=== PATIENT | male | born 1940 | race Caucasian/White ===

== ENCOUNTER → 2016-12-29 | Outpatient (CLI) | payer OTHER | LOC: FIMAGING 15:50 | PROVIDERS: ATTEND Internal Medicine | DX: M48.07 Spinal stenosis, lumbosacral region (principal); M47.816 Spondylosis without myelopathy or radiculopathy, lumbar region; M48.062 Spinal stenosis, lumbar region with neurogenic claudication; M46.96 Unspecified inflammatory spondylopathy, lumbar region ==

== ENCOUNTER → 2017-02-18 | Outpatient (CLI) | payer OTHER | LOC: BMCIMAGING 15:10 | PROVIDERS: ATTEND Orthopaedic Surgery Hand Surgery | DX: M18.12 Unilateral primary osteoarthritis of first carpometacarpal joint, left hand (principal) ==

== ENCOUNTER 2017-03-26 19:31 | Emergency (ER) | payer OTHER ==
[2017-03-26 19:38] VITALS: BP 163/89; PULSE 71; RESP 20; TEMP 99; O2SAT 97
--- NOTE | 2017-03-26 19:45 | EDPHY ---
H & P Stated Complaint: Bowel obstruction, constipation HPI/ROS: CHIEF COMPLAINT: Bowel blockage HISTORY OF PRESENT ILLNESS: This patient is a 77 year old male who underwent lumbar surgery 03/23/17 who presents complaining of constipation. He had a cyst removal under general anesthesia to relieve nerve impingement with Dr. Dove, neurosurgeon. Since the procedure, he has been taking his maximum allowed dose of pain medication ( hydrocodone) as he feels pain is worse following surgery. He takes Hydrocodone 1 -2 every 4-6 hours as well as a muscle relaxant. He has not had a bowel movement since before his operation, but was able to remove a very small quantity of stool today with manual disimpaction. He has passed some gas. He has taken a stool softener, four x-lax pills, prune juice, and been drinking lots of water with no relief. He has lower abdominal discomfort due to gas and constipation. He denies any blood per rectum. He denies fever, vomiting, urinary complaints, or other associated symptoms. REVIEW OF SYSTEMS: A ten point review of systems was performed and is negative with the exception of the items mentioned in the HPI. Past medical history: 1. GERD 2. Hyperlipidemia Past surgical history: 1. Stent placements (formerly anticoagulated) 2. Lumbar surgery Family history: Noncontributory Social history: . at bedside. 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 General Appearance: Alert. Vital signs reviewed. BP 163/89. Eyes: Pupils equal and round, no conjunctival injection, no discharge. Anicteric. ENT, Mouth: Mucous membranes are moist, no oropharyngeal erythema or edema. Respiratory: Lungs are clear to auscultation; no wheezes, rales, or rhonchi. Cardiovascular: Regular rate and rhythm; no murmur, rub, or gallop. Gastrointestinal: Abdomen is soft and nontender, no masses or organomegaly, bowel sounds normal. Rectal: Firm stool high in rectal vault. Normal rectal tone and sensation. Skin: Warm and dry, no rashes on exposed skin, normal color. Back: Surgical dressing in place over lumbar spine. No erythema at edge of dressing. Nontender to palpation over the thoracolumbar spine. No CVAT. Extremities: No lower extremity edema, no calf tenderness or swelling. Neurological: Alert and oriented. Moving all four extremities easily and equally. Gait is mildly antalgic. Psychiatric: Normal affect. - Personal History Current Tetanus Diphtheria and Acellular Pertussis (TDAP): Unsure Tetanus Vaccine Date: Unsure - Medical/Surgical History Hx Asthma: No Hx Chronic Respiratory Disease: No Hx Diabetes: No Hx Cardiac Disease: Yes Hx Renal Disease: No Hx Cirrhosis: No Hx Alcoholism: No Hx HIV/AIDS: No Hx Splenectomy or Spleen Trauma: No - Social History Smoking Status: Never smoked Constitutional: Initial Vital Signs Temperature (C) 37.2 C 03/26/17 19:34 Heart Rate 71 03/26/17 19:34 Respiratory Rate 20 03/26/17 19:34 Blood Pressure 163/89 H 03/26/17 19:34 O2 Sat (%) 97 03/26/17 19:34 O2 Delivery Mode Room Air Allergies/Adverse Reactions: mussels Allergy (Verified 03/26/17 19:33) Home Medications: Medication Instructions Recorded Atorvastatin Calcium [Lipitor 40 40 mg PO DAILY 07/10/11 mg (RX)] Cetirizine [ZyRTEC] 10 mg PO DAILY PRN 07/10/11 Clopidogrel Bisulfate [Plavix (RX)] 75 mg PO DAILY 07/10/11 Omeprazole [Prilosec 20 mg] 20 mg PO DAILY 07/10/11 Zolpidem Tartrate [Ambien (RX)] 5 mg PO HSPRN PRN 07/10/11 Medical Decision Making ED Course/Re-evaluation: 77 year old male s/p spinal surgery 03/23/17 presents with four day history of constipation. Exam reveals firm stool in vault, normal tone. Plan for enema administration. If this is unsuccessful, plan to administer magnesium citrate. Patient felt the urge to move his bowels and was able to do so without any additional treatment. He had significant relief and felt well enough to return home. I recommend that he decrease his opiate use. He agrees to try tylenol only, with an occasional opiate if needed. The hydrocodone has not been providing pain relief, will try oxycodone (he was given Percocet, six dispensed) . He understands that he needs to monitor his overall tylenol ingestion. He will continue with a stool softener and will begin Miralax. He plans to contact Dr. Dove's office on Tuesday to discuss his pain level. He has no new weakness. I do not suspect a surgical complication, epidural abscess, infection. I think that his constipation is due to opiate use and relative inactivity. - Data Points Medications Given: Discontinued Medications Oxycodone/Acetaminophen (Percocet 5/325mg Prepack#4) 1 btl TAKEHOME EDNOW ONE Stop: 03/26/17 21:06 Last Admin: 03/26/17 21:24 Dose: 1 btl Departure - Departure Disposition: Home, Routine, Self-Care Clinical Impression: Constipation Qualifiers: Constipation type: drug induced constipation Qualified Code(s): K59.03 - Drug induced constipation Condition: Good Instructions: Constipation (ED) Additional Instructions: I recommend that you continue with the stool softener that you are taking. I also recommend MiraLax daily for the next few days. I do not think that you need to take magnesium citrate (the liquid that we discussed). Try the percocet for pain, if needed. As we discussed, the fewer narcotics you take the better off you will be in terms of constipation. The Percocet also contains Tylenol, 325 mg per tablet. You can take plain Tylenol, 650 mg per dose, every 4-6 hours. Keep track of your overall Tylenol intake and do not exceed 3000 mg in 24 hr. Continue the muscle relaxant. If you have fever, lose control of your bowels or bladder, have severe abdominal pain, or develop any new symptoms please return for re-evaluation. Call your neurosurgeon on Tuesday to talk further about your continued back and buttock pain. Referrals: Jazz Bolton MD [Primary Care Provider] - As per Instructions Nanda Dove DO [Doctor of Osteopathy] - As per Instructions Report Scribed for: Baylee Rebollar Report Scribed by: Dayanara Smalls Date of Report: 03/26/17 Time of Report: 20:16 Physician Review and Approval Statement: 03/26/17 19:45 Portions of this note were transcribed by the medical investigator. I, Dr. Baylee Rebollar, personally performed the history, physical exam, and medical decision- making; and confirmed the accuracy of the information in the transcribed note.
[2017-03-26] MEDS ORDERED: OXYCODONE/APAP 5/325MG PREPACK#4 BTL TAKEHOME ONE (21:05)
== END 2017-03-26 21:29 | disposition home or self-care (01) ==
DX: K59.03 Drug induced constipation (principal); T40.2X5A Adverse effect of other opioids, initial encounter

== ENCOUNTER → 2017-05-26 | Outpatient (CLI) | payer OTHER | LOC: FIMAGING 07:41 | PROVIDERS: ATTEND Internal Medicine | DX: M51.86 Other intervertebral disc disorders, lumbar region (principal); M48.061 Spinal stenosis, lumbar region without neurogenic claudication; M51.16 Intervertebral disc disorders with radiculopathy, lumbar region ==

== ENCOUNTER 2017-06-08 07:41 | Day surgery (SDC) | payer OTHER ==
[~2017-06-08 07:41] MED LIST: ceFAZolin 3 GM in D5W 100 ML IV ONE
[2017-06-08] MEDS ORDERED: LR 1,000 ML IV ONE (08:07)
[2017-06-08] MEDS ORDERED: LIDOCAINE 1% 2 ML INJ ID PRN (08:07)
[2017-06-08] MEDS ORDERED: BUPIVACAINE 0.25% 30 ML SDV ONE (08:41)
[2017-06-08] MEDS ORDERED: CHLORHEXIDINE GLUC HIBICLENS 118 ML BTL TP ONE (08:41)
[2017-06-08] MEDS ORDERED: THROMBIN (BOVINE) 5,000 UNIT VIAL TP ONE (08:41)
[2017-06-08] MEDS ORDERED: SURGIFLO MATRIX KIT WITH THROMBIN 8ml TP ONE ×3 (08:41→11:00)
[2017-06-08] MEDS ORDERED: BACITRACIN 50,000 UNITS/10 ML SYR IRR ONE (08:42)
--- NOTE | 2017-06-08 09:21 | PDANEPAE ---
ANE History of Present Illness low back pain ANE Past Medical History - Cardiovascular History Hx Hypertension: No Hx Arrhythmias: No Hx Chest Pain: No Hx Coronary Artery / Peripheral Vascular Disease: Yes Hx CHF / Valvular Disease: No Hx Palpitations: No Cardiovascular History Comment: STENTS X2 2013. 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 - Pulmonary History Hx COPD: No Hx Asthma/Reactive Airway Disease: No Hx Recent Upper Respiratory Infection: No Hx Oxygen in Use at Home: No Hx Sleep Apnea: No Sleep Apnea Screening Result - Last Documented: Negative - Neurologic History Hx Cerebrovascular Accident: No Hx Seizures: No Hx Dementia: No - Endocrine History Hx Diabetes: No - Renal History Hx Renal Disorders: No - Liver History Hx Hepatic Disorders: No - Neurological & Psychiatric Hx Hx Neurological and Psychiatric Disorders: No - Cancer History Hx Cancer: Yes Cancer History Comment: PROSTATE - Congenital Disorder History Hx Congenital Disorders: No - GI History Hx Gastrointestinal Disorders: No - Other Health History Other Health History: HERNIATED DISC - Chronic Pain History Chronic Pain: Yes (RT SCIATICA) - Surgical History Prior Surgeries: REMVL SPINAL CYST AND REMOVAL OF SOME BONE 03/23/2017. LT EAR X3. LT ANKLE REMVL BONE SPUR. RADICAL PROSTATECTOMY. TONSILLECTOMY. ING HERNIA ANE Review of Systems Review of systems is: negative Review of Systems: - Exercise capacity Exercise capacity: >=4 METS METS (RN): 4 METS ANE Patient History - Allergies Allergies/Adverse Reactions: mussels Allergy (Verified 03/26/17 19:33) - Home Medications Home Medications: Atorvastatin Calcium [Lipitor 40 mg (RX)] 40 mg PO DAILY 07/10/11 [Last Taken ] Zolpidem Tartrate [Ambien (RX)] 5 mg PO HSPRN PRN 07/10/11 [Last Taken 1 Day Ago ~06/07/17] Cymbalta DAILY 06/02/17 [Last Taken 06/08/17] Herbals/Supplements -Info Only DAILY 06/02/17 [Last Taken Unknown] Lyrica BID 06/02/17 [Last Taken 06/08/17] Paxil DAILY 06/02/17 [Last Taken 06/08/17] Aspirin 81mg (*) 06/08/17 [Last Taken 10 Days Ago ~05/29/17] - NPO status NPO Status: no food or drink >8 hours NPO Since - Liquids (Date): 06/08/17 NPO Since - Liquids (Time): 06:15 NPO Since - Solids (Date): 06/07/17 NPO Since - Solids (Time): 21:30 - Anes Hx Anes Hx: no prior problems - Smoking Hx Smoking Status: Never smoked - Alcohol Use Alcohol Use: Heavy (14/wk) ANE Labs/Vital Signs - Vital Signs Blood Pressure: 156/90 Heart Rate: 71 Respiratory Rate: 20 O2 Sat (%): 96 Height: 179.07 cm Weight: 80.286 kg ANE Physical Exam - Airway Neck exam: FROM Mallampati Score: Class 2 - Pulmonary Pulmonary: no respiratory distress - Cardiovascular Cardiovascular: regular rate and rhythym - ASA Status ASA Status: III ANE Anesthesia Plan Anesthesia Plan: general endotracheal anesthesia
--- NOTE | 2017-06-08 09:24 | PDHPUP ---
History & Physical Update H&P update statement: This history and physical update is based on an assessment of the patient which was completed after admission or registration (within 24 hours), but prior to the surgery/procedure. H&P update: H&P reviewed & patient examined, no change in patient's condition since H&P completed
[2017-06-08] MEDS ORDERED: ROCURONIUM 50 MG/5 ML VIAL ONE (09:32)
[2017-06-08] MEDS ORDERED: LIDOCAINE 2% 5 ML SDV ONE (09:32)
[2017-06-08] MEDS ORDERED: PROPOFOL 200 MG/20 ML VIAL ONE (09:33)
[2017-06-08] MEDS ORDERED: PROPOFOL/EMULSION 500 MG/50 ML BOTTLE IV ONE (09:33)
[2017-06-08] MEDS ORDERED: REMIFENTANIL HCL 1 MG VIAL ONE (09:33)
[2017-06-08] MEDS ORDERED: fentaNYL 100 MCG/2 ML INJ ONE (09:33)
[2017-06-08] MEDS ORDERED: DEXAMETHASONE 4 MG/ML VIAL ONE (09:57)
[2017-06-08] MEDS ORDERED: ONDANSETRON 4 MG/2 ML VIAL ONE (09:57)
[2017-06-08] MEDS ORDERED: PHENYLEPHRINE HCL 100 MCG/ML SYR ONE (09:59)
[2017-06-08] MEDS ORDERED: THROMBIN (BOVINE) 20,000 UNIT VIAL TP ONE (10:51)
[2017-06-08] MEDS ORDERED: HYDROCODONE/APAP 5/325 TAB PO PRN (11:35)
[2017-06-08] MEDS ORDERED: ONDANSETRON DISINTEGRATING 4 MG TAB PO PRN (11:35)
[2017-06-08] MEDS ORDERED: DIAZEPAM 5 MG/ML 1 ML SYR IVP PRN (11:41)
[2017-06-08] MEDS ORDERED: ACETAMINOPHEN 500 MG TAB PO PRN (11:41)
[2017-06-08] MEDS ORDERED: ALBUTEROL 3 ML DEYVIAL IH PRN (11:41)
[2017-06-08] MEDS ORDERED: LABETALOL HCL 5 MG/ML 20 ML MDV IVP PRN (11:41)
[2017-06-08] MEDS ORDERED: ONDANSETRON 4 MG/2 ML VIAL IVP PRN (11:41)
[2017-06-08] MEDS ORDERED: fentaNYL 100 MCG/2 ML INJ IVP PRN (11:41)
[2017-06-08] MEDS ORDERED: oxyCODONE IR 5 MG TAB PO PRN (11:41)
[2017-06-08] MEDS ORDERED: NALOXONE HCL 0.4 MG/ML INJ IVP PRN (11:41)
[2017-06-08] MEDS ORDERED: PROMETHAZINE HCL 25 MG/ML INJ IVP PRN (11:41)
[2017-06-08] MEDS ORDERED: HYDROmorphONE/DILAUDID 1 MG/ML INJ IVP PRN (11:41)
--- NOTE | 2017-06-08 11:41 | GOP ---
[f rep st] OPERATIVE REPORT DATE OF OPERATION: SURGEON: Nanda Dove DO NEUROSURGEON: Nanda Dove DO. DINKEY MECHANIC: FAREED Jiang. PREOPERATIVE DIAGNOSIS: 1. Large right L2-3 herniated nucleus pulposus. 2. Radiculopathy. POSTOPERATIVE DIAGNOSIS: 1. Large right L2-3 herniated nucleus pulposus. 2. Radiculopathy. PROCEDURE PERFORMED: 1. Right L2-3 microdiskectomy. 2. Microscope. FINDINGS: SPECIMENS: None. ESTIMATED BLOOD LOSS: 50 mL. INDICATIONS: This is a 77-year-old male had a previous right-sided facet cyst resection and had cont inued right leg pain. He had on repeat MRI worsening of a small disk bulge, now a large disk herniat ion that was consistent with his leg pain. He appeared well decompressed at the L4-5 level. He elec theresa to move forward with diskectomy at L2-3. DESCRIPTION OF PROCEDURE: He was identified, consented. Sites were marked. Brought to the operatin g room, anesthetized under general endotracheal tube anesthesia, rolled onto the OR bed with a Ismael frame. All pressure points were appropriately padded. The skin was cleansed with chlorhexidine, an d an 18-gauge spinal needle was introduced under x-ray. We verified and marked the incision site. W e prepped and draped in the usual sterile fashion. Incision was anesthetized with 0.5% Marcaine with epinephrine. Incision was made with a 10 blade. Hemostasis was obtained with Bovie and bipolar cau nu, dissecting down onto the laminae of L2 and L3. Placed a Shadow-Line retractor. Placed Penfiel d 4 under the lamina of L2 and took an x-ray verifying we were in the appropriate position. Marked t he level, brought in a microscope. Using a high-speed drill, created a laminotomy at L2-3, opening t he ligamentum flavum with a ball-tip probe. We were able to get the ball-tip probe into the space an d verified under x-ray that we were in the appropriate space. We then, using the ball-tip probe and a nerve root retractor, retracted the thecal sac medially. The nerve root was scarred to the anulus at the anterior portion of the foramen; however, we were able to take several fragments of disk out. The disk did not come out in 1 solid piece, but in several frag ments. We then did a generous foraminotomy, explored the space with a ball-tip probe. Explored the foramen with a ball-tip probe. When we were confident that we were well decompressed and the thecal s ac looked also well decompressed, meticulous hemostasis was obtained with Floseal. Once meticulous h emostasis was obtained, we copiously irrigated with over a liter of gentamicin-infused saline, remove d the Shadow-Line retractor, removed the microscope, closed the fascia with 0 Vicryl pop-offs, subcut aneous layer with 2-0 Vicryl pop-offs, cutaneous layer with 3-0 Vicryl pop-offs. The skin was closed with 4-0 running Monocryl and Steri-Strips. Neuro monitoring was stable and the patient tolerated p rocedure well. There were no complications. FLUIDS: 600 mL crystalloid. URINE OUTPUT: None. DRAINS: None. COMPLICATIONS: None. /[id number]/MODL
--- NOTE | 2017-06-08 11:43 | POSTANESTH ---
Post Anesthetic Evaluation Cardiovascular Status: Normal, Stable Respiratory Status: Normal, Stable Level of Consciousness/Mental Status: Can Participate in Eval Pain Control: Adequate, Prn Tx Ordered Nausea/Vomiting Control: Adequate, Prn Tx Ordered Complications Possibly Related to Anesthesia: None Noted
[2017-06-08 12:47] VITALS: PULSE 61; RESP 16; TEMP 97.5
[2017-06-08 13:20] VITALS: BP 135/83; O2SAT 95
--- NOTE | 2017-06-08 13:44 | POSTOPPROG ---
Post Op Note Date of Operation: 06/08/17 Surgeon: Nanda Dove Lehr Operator: Lidia Estrada PA-C Anesthesiologist: Dr. Dukes Anesthesia: GET(General Endotracheal) Pre-op Diagnosis: lumbar disc herniation Post-op Diagnosis: lumbar disc herniation Procedure: Right L2/3 microdiscectomy Inf/Abcess present in the surg proc area at time of surgery?: No Depth: Deep Incisional (Fascial) EBL: 50-100 Plan Plan: 77 yo male s/p right L2/3 microdiscectomy - neuro checks - pain control - advance diet as tolerated - dc home today
== END 2017-06-08 13:50 | disposition home or self-care (01) ==
LOC: FSGY 07:41
PROVIDERS: ATTEND Neurological Surgery
PROC: BR191ZZ Fluoroscopy of Lumbar Spine using Low Osmolar Contrast (ICD-10-PCS; principal; 2017-06-08 09:45)
PROC: 00NY0ZZ Release Lumbar Spinal Cord, Open Approach (ICD-10-PCS; principal; 2017-06-08 09:45)
DX: M51.26 Other intervertebral disc displacement, lumbar region (principal); M51.16 Intervertebral disc disorders with radiculopathy, lumbar region; I25.10 Atherosclerotic heart disease of native coronary artery without angina pectoris; Z85.46 Personal history of malignant neoplasm of prostate; Z95.5 Presence of coronary angioplasty implant and graft
CPT/HCPCS: J0171; J0690; J1100; J2370; J2405; J2704; J3010

== ENCOUNTER → 2017-07-09 | Outpatient (CLI) | payer OTHER | LOC: FIMAGING 07:50 | PROVIDERS: ATTEND Physical Medicine & Rehabilitation | DX: M25.551 Pain in right hip (principal); M54.16 Radiculopathy, lumbar region; M16.11 Unilateral primary osteoarthritis, right hip; M25.851 Other specified joint disorders, right hip; M46.1 Sacroiliitis, not elsewhere classified; M47.896 Other spondylosis, lumbar region; M76.891 Other specified enthesopathies of right lower limb, excluding foot; M48.061 Spinal stenosis, lumbar region without neurogenic claudication; R93.8 Abnormal findings on diagnostic imaging of other specified body structures ==

== ENCOUNTER → 2017-12-21 | Outpatient (CLI) | payer OTHER | LOC: FIMAGING 07:49 | PROVIDERS: ATTEND Neurological Surgery | DX: M47.12 Other spondylosis with myelopathy, cervical region (principal); M48.54XA Collapsed vertebra, not elsewhere classified, thoracic region, initial encounter for fracture; M51.34 Other intervertebral disc degeneration, thoracic region ==

== ENCOUNTER 2018-02-22 08:13 | Day surgery (SDC) | payer OTHER ==
[2018-02-22] MEDS ORDERED: ceFAZolin 2 GM/DEXTROSE 100 ML IV ONE (08:45)
[2018-02-22] MEDS ORDERED: ACETAMINOPHEN 500 MG TAB PO ONE (08:45)
[2018-02-22] MEDS ORDERED: morphINE SR 15 MG TAB PO ONE (08:45)
[2018-02-22] MEDS ORDERED: BUPIVACAINE 0.25% 10 ML SDV ONE (08:55)
[2018-02-22] MEDS ORDERED: LIDOCAINE 1% 300 MG/30 ML SDV ONE (08:55)
[2018-02-22] MEDS ORDERED: CHLORHEXIDINE GLUC HIBICLENS 118 ML BTL TP ONE (08:56)
[2018-02-22] MEDS ORDERED: SURGIFLO MATRIX KIT WITH THROMBIN 8 ML TP ONE (08:56)
[2018-02-22] MEDS ORDERED: GENTAMICIN SULFATE 80 MG/2 ML VIAL ONE (08:56)
[2018-02-22] MEDS ORDERED: THROMBIN (BOVINE) 5,000 UNIT VIAL TP ONE (08:57)
--- NOTE | 2018-02-22 09:13 | PDANEPAE ---
ANE History of Present Illness Right side sciatic pain ANE Past Medical History - Cardiovascular History Hx Hypertension: No Hx Arrhythmias: No Hx Chest Pain: No Hx Coronary Artery / Peripheral Vascular Disease: Yes Hx CHF / Valvular Disease: No Hx Palpitations: No Cardiovascular History Comment: STENTS X2 2013. DR MENDOZA [facility] [place] - Pulmonary History Hx COPD: No Hx Asthma/Reactive Airway Disease: No Hx Recent Upper Respiratory Infection: No Hx Oxygen in Use at Home: No Hx Sleep Apnea: Yes Sleep Apnea Screening Result - Last Documented: Negative - Neurologic History Hx Cerebrovascular Accident: No Hx Seizures: No Hx Dementia: No - Endocrine History Hx Diabetes: No - Renal History Hx Renal Disorders: No - Liver History Hx Hepatic Disorders: No - Neurological & Psychiatric Hx Hx Neurological and Psychiatric Disorders: Yes Neurological / Psychiatric History Comment: ANXIETY/DEPRESSION - Cancer History Hx Cancer: Yes Cancer History Comment: PROSTATE - Congenital Disorder History Hx Congenital Disorders: No - GI History Hx Gastrointestinal Disorders: No Gastrointestinal History Comment: HX ACID REFLUX - Other Health History Other Health History: NEG - Chronic Pain History Chronic Pain: Yes (R BUTTOCK) - Surgical History Prior Surgeries: LUMBAR DISC SURGERY 05/2017. REMVL SPINAL CYST AND REMOVAL OF SOME BONE 03/23/2017. LT EAR X3. LT ANKLE REMVL BONE SPUR. RADICAL PROSTATECTOMY. TONSILLECTOMY. ING HERNIA ANE Review of Systems Review of Systems: - Exercise capacity METS (RN): 4 METS ANE Patient History - Allergies Allergies/Adverse Reactions: mussels Allergy (Verified 03/26/17 19:33) - Home Medications Home medications: home medication list seen and reviewed Home Medications: Atorvastatin Calcium [Lipitor 40 mg (*)] 40 mg PO DAILY 07/10/11 [Last Taken 08/05 06:30] Zolpidem Tartrate [Ambien 5MG (*)] 5 mg PO HSPRN PRN 07/10/11 [Last Taken 00:30] Cymbalta DAILY 06/02/17 [Last Taken 06/08/17] Herbals/Supplements -Info Only DAILY 06/02/17 [Last Taken 02/22/18 06:30] Aspirin 02/20/18 [Last Taken 02/15/18] Paroxetine HCl 02/20/18 [Last Taken 02/22/18 06:30] - NPO status NPO Status: no food or drink >8 hours - Anes Hx Anes Hx: no prior problems - Smoking Hx Smoking Status: Never smoked - Family Anes Hx Family Hx Anesthesia Complications: NEG ANE Labs/Vital Signs - Vital Signs Height: 179.07 cm Weight: 79.379 kg ANE Physical Exam - Airway Neck exam: FROM Mallampati Score: Class 2 Mouth exam: normal dental/mouth exam - Pulmonary Pulmonary: no respiratory distress - Cardiovascular Cardiovascular: regular rate and rhythym - ASA Status ASA Status: II ANE Anesthesia Plan Anesthesia Plan: MAC (Need to have pt respond to verbal questions)
[2018-02-22] MEDS ORDERED: LIDOCAINE 1% 2 ML INJ ID PRN (09:14)
[2018-02-22] MEDS ORDERED: LR 1,000 ML IV ONE (09:14)
[2018-02-22] MEDS ORDERED: MIDAZOLAM 2 MG/2 ML VIAL IVP ONE (09:26)
[2018-02-22] MEDS ORDERED: fentaNYL 100 MCG/2 ML INJ ONE (09:34)
[2018-02-22] MEDS ORDERED: PROPOFOL/EMULSION 500 MG/50 ML BOTTLE IV ONE (09:35)
[2018-02-22] MEDS ORDERED: PROPOFOL 200 MG/20 ML VIAL ONE (09:35)
[2018-02-22] MEDS ORDERED: NALOXONE HCL 0.4 MG/ML INJ IVP PRN (11:16)
[2018-02-22] MEDS ORDERED: fentaNYL 100 MCG/2 ML INJ IVP PRN (11:16)
[2018-02-22] MEDS ORDERED: ONDANSETRON 4 MG/2 ML VIAL IVP PRN (11:16)
[2018-02-22] MEDS ORDERED: HYDROmorphONE/DILAUDID 2 MG/ML INJ IVP PRN (11:16)
--- NOTE | 2018-02-22 11:48 | POSTANESTH ---
Post Anesthetic Evaluation Cardiovascular Status: Similar to Pre-Op Cond Respiratory Status: Similar to Pre-op Cond. Level of Consciousness/Mental Status: Alert and Oriented Pain Control: Adequate, Prn Tx Ordered Nausea/Vomiting Control: Adequate, Prn Tx Ordered Complications Possibly Related to Anesthesia: None Noted
[2018-02-22] MEDS ORDERED: HYDROCODONE/APAP 5/325 TAB PO PRN (12:09)
--- NOTE | 2018-02-22 12:13 | GOP ---
DATE OF OPERATION: 02/22/2018 SURGEON: Nanda Dove DO NEUROSURGEON: Nanda Dove DO FISHER SCALLOP: FAREED Jiang. PREOPERATIVE DIAGNOSIS: 1. Chronic pain syndrome. 2. Failed back syndrome. POSTOPERATIVE DIAGNOSIS: 1. Chronic pain syndrome. 2. Failed back syndrome. PROCEDURE PERFORMED: 1. Thoracic laminectomy, placement of Medtronic 565 SureScan paddle lead for trial at T8, T9, and T1 0. 2. Impedances. FINDINGS: SPECIMENS: None. ESTIMATED BLOOD LOSS: 50 mL. INDICATIONS: This is a 78-year-old male who has had 2 diskectomies. He has chronic radiculopathy an d has failed conservative management. Elected to move forward with spinal cord stimulator paddle bettina d trial. DESCRIPTION OF PROCEDURE: He was identified, consented. Sites were marked. Brought to the operatin g room. Anesthetized under local with MAC, rolled onto the OR bed with a Ismael frame. All pressure points were appropriately padded. Counting up from the sacrum, marked the T10-11 interspace, and he was prepped and draped in the usual sterile fashion. Incision was anesthetized with 0.25% Marcaine with epinephrine. Incision was made with a 10 blade. Hemostasis was obtained with bipolar cautery and Bovie dissecting down onto the laminae of T10 and T11. Placed a [place] 4 and marked this space. Placed a Shadow L ine retractor, used Lenidaell to remove the spinous process, interspinous ligament, used a drill to cre ate a laminotomy. Opened ligamentum flavum with a ball-tip probe and extended this with 2 and 3 Lopez isons. Placed a paddle lead into the space tested. We got good coverage in all areas of his pain. Anchored with the Injex Bumpy Anchors and 2-0 silk at 2 positions. Copiously irrigated with over a l iter of gentamicin-infused saline. Meticulous hemostasis was obtained with bipolar and Floseal. We then closed the fascia with 0 Vicryl pop-offs, created a subcutaneous pocket with Metzenbaum scissors . Meticulous hemostasis was obtained with bipolar. Tunneled the lead out early to the left as he wo uld like a right-sided permanent generator implant. Coiled the wires in the space. Took a final x-r ay for lead position and copiously irrigated with another liter of gentamicin-infused saline. Closed the subcutaneous layer with 2-0 Vicryl pop-offs, the skin with 3-0 running nylon. Placed a Vicryl s titch around the leads as they exited. Dressed the wound with Xeroform gauze and Tegaderm. Patient tolerated procedure well. There were no complications. FLUID: 700 mL crystalloid. URINE OUTPUT: None. DRAINS: None. COMPLICATIONS: None. /[id number]/MODL
[2018-02-22 13:10] VITALS: BP 121/85
== END 2018-02-22 13:10 | disposition home or self-care (01) ==
LOC: FSGY 08:13
PROVIDERS: ATTEND Neurological Surgery
PROC: BR17YZZ Fluoroscopy of Thoracic Spine using Other Contrast (ICD-10-PCS; principal; 2018-02-22 10:15)
PROC: 00HV0MZ Insertion of Neurostimulator Lead into Spinal Cord, Open Approach (ICD-10-PCS; principal; 2018-02-22 10:15)
DX: G89.4 Chronic pain syndrome (principal); M54.15 Radiculopathy, thoracolumbar region; F32.9 Major depressive disorder, single episode, unspecified; F41.9 Anxiety disorder, unspecified; Z85.49 Personal history of malignant neoplasm of other male genital organs
CPT/HCPCS: C1778; C1883; J0690; J1580; J2250; J2704; J3010

== ENCOUNTER 2018-03-01 08:31 | Day surgery (SDC) | payer OTHER ==
--- NOTE | 2018-02-28 17:50 | GHP ---
DATE OF ADMISSION: 03/01/2018 DATE OF SURGERY: March 01. HISTORY OF PRESENT ILLNESS: The patient is a 78-year-old male who has a chronic back and right leg pain. He has a history of a right L4-5 microdiskectomy and resection of facet cyst on March 23, 2017, at [facility] and a right L2-3 microdiskectomy on May 20, 2017, at [facility]. Despite these surgeries, he had continued pain at the right gluteal region and hip. He thus underwent a thoracic laminectomy for spinal cord stim paddle lead trial 1 week ago. During this week of trial, he has had significant improvement in his day-to-day chronic pain, with more than 50% relief in his symptoms. He would like to proceed with implant of the generator. PAST MEDICAL HISTORY: Hyperlipidemia. PAST SURGICAL HISTORY: Right L4-5 microdiskectomy and resection of facet cyst on March 23, right L2-3 microdiskectomy on May 20. FAMILY HISTORY: No pertinent neurosurgical family history. SOCIAL HISTORY: Patient admits to daily use of alcohol at 1-2 drinks of wine. Denies tobacco use. ALLERGIES: Mussels MEDICATIONS: Please refer to the [facility] REVIEW OF SYSTEMS: Negative, except for what is mentioned in the HPI. PHYSICAL EXAM: GENERAL: Patient seen and examined, appears to be in no apparent distress. Mood and affect appropriate. Alert and oriented. NEUROLOGIC: Muscle strength is well preserved in his upper and lower extremities at a 5/5. Sensation is intact to light touch. Pupils are equal and reactive. Facial expression is symmetrical. Tongue is midline with protrusion. Speech is fluent, without dysarthria. ASSESSMENT/PLAN: In summary, the patient is a 78-year-old male with chronic back and right lower extremity symptoms. He underwent a thoracic laminectomy for spinal cord stimulator paddle lead trial 1 week ago. Patient has had a successful trial, with more than 50% reduction in his day-to-day chronic pain. We, therefore, recommend proceeding with implant of the generator. The risks, benefits, and procedure were discussed in detail with the patient. The patient has agreed and consented, and all questions and concerns were addressed and answered. /[id number]/MODL MTDD
[2018-03-01] MEDS ORDERED: ceFAZolin 2 GM/DEXTROSE 100 ML IV ONE (08:45)
[2018-03-01] MEDS ORDERED: LR 1,000 ML IV ONE (09:02)
[2018-03-01] MEDS ORDERED: LIDOCAINE 1% 2 ML INJ ID PRN (09:02)
[2018-03-01] MEDS ORDERED: CHLORHEXIDINE GLUC HIBICLENS 118 ML BTL TP ONE (09:42)
[2018-03-01] MEDS ORDERED: GENTAMICIN SULFATE 80 MG/2 ML VIAL ONE ×2 (09:43→09:53)
[2018-03-01] MEDS ORDERED: BUPIVACAINE/EPI 0.25% 30 ML SDV ONE ×2 (09:43→09:52)
[2018-03-01] MEDS ORDERED: BACITRACIN 50,000 UNITS/10 ML SYR IRR ONE (09:53)
[2018-03-01] MEDS ORDERED: SURGIFLO MATRIX KIT WITH THROMBIN 8 ML TP ONE (09:59)
--- NOTE | 2018-03-01 10:51 | PDANEPAE ---
ANE Past Medical History - Cardiovascular History Hx Hypertension: No Hx Arrhythmias: No Hx Chest Pain: No Hx Coronary Artery / Peripheral Vascular Disease: Yes Hx CHF / Valvular Disease: No Hx Palpitations: No Cardiovascular History Comment: STENTS X2 2013. 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 - Pulmonary History Hx COPD: No Hx Asthma/Reactive Airway Disease: No Hx Recent Upper Respiratory Infection: No Hx Oxygen in Use at Home: No Hx Sleep Apnea: No Sleep Apnea Screening Result - Last Documented: Negative - Neurologic History Hx Cerebrovascular Accident: No Hx Seizures: No Hx Dementia: No - Endocrine History Hx Diabetes: No - Renal History Hx Renal Disorders: No - Liver History Hx Hepatic Disorders: No - Neurological & Psychiatric Hx Hx Neurological and Psychiatric Disorders: No Neurological / Psychiatric History Comment: ANXIETY/DEPRESSION - Cancer History Hx Cancer: Yes Cancer History Comment: PROSTATE - Congenital Disorder History Hx Congenital Disorders: No - GI History Hx Gastrointestinal Disorders: No Gastrointestinal History Comment: HX ACID REFLUX - Other Health History Other Health History: HERNIATED DISC - Chronic Pain History Chronic Pain: Yes (RT SCIATICA) - Surgical History Prior Surgeries: REMVL SPINAL CYST AND REMOVAL OF SOME BONE 03/23/2017. LT EAR X3. LT ANKLE REMVL BONE SPUR. RADICAL PROSTATECTOMY. TONSILLECTOMY. ING HERNIA ANE Review of Systems Review of Systems: - Exercise capacity METS (RN): 4 METS ANE Patient History - Allergies Allergies/Adverse Reactions: mussels Allergy (Verified 03/26/17 19:33) - Home Medications Home Medications: Atorvastatin Calcium [Lipitor 40 mg (*)] 40 mg PO DAILY 07/10/11 [Last Taken 02/05] Zolpidem Tartrate [Ambien 5MG (*)] 5 mg PO HSPRN PRN 07/10/11 [Last Taken 00:30] Cymbalta DAILY 06/02/17 [Last Taken 02/28/18] Paroxetine HCl 02/20/18 [Last Taken 02/28/18] Cephalexin 1 tab PO Q6HRS 03/01/18 [Last Taken 03/01/18] - NPO status NPO Since - Liquids (Date): 02/28/18 NPO Since - Liquids (Time): 22:00 NPO Since - Solids (Date): 02/28/18 NPO Since - Solids (Time): 22:00 - Smoking Hx Smoking Status: Never smoked - Family Anes Hx Family Hx Anesthesia Complications: NEG ANE Labs/Vital Signs - Vital Signs Blood Pressure: 139/89 Heart Rate: 66 Respiratory Rate: 16 O2 Sat (%): 99 Height: 179.07 cm Weight: 79.379 kg ANE Physical Exam - Airway Mallampati Score: Class 1 - ASA Status ASA Status: III ANE Anesthesia Plan Anesthesia Plan: general endotracheal anesthesia
[2018-03-01] MEDS ORDERED: fentaNYL 100 MCG/2 ML INJ ONE (10:58)
[2018-03-01] MEDS ORDERED: MIDAZOLAM 2 MG/2 ML VIAL ONE (10:58)
[2018-03-01] MEDS ORDERED: PROPOFOL 200 MG/20 ML VIAL ONE (10:59)
[2018-03-01] MEDS ORDERED: ONDANSETRON 4 MG/2 ML VIAL ONE (11:00)
[2018-03-01] MEDS ORDERED: METOCLOPRAMIDE 10 MG/2 ML VIAL ONE (11:00)
[2018-03-01] MEDS ORDERED: ROCURONIUM 50 MG/5 ML VIAL ONE (11:00)
[2018-03-01] MEDS ORDERED: SUGAMMADEX SODIUM 200 MG/2 ML VIAL IVP ONE (11:53)
[2018-03-01] MEDS ORDERED: fentaNYL 100 MCG/2 ML INJ IVP PRN (12:06)
[2018-03-01] MEDS ORDERED: LR 500 ML IV PRN (12:06)
[2018-03-01] MEDS ORDERED: NALOXONE HCL 0.4 MG/ML INJ IVP PRN (12:06)
--- NOTE | 2018-03-01 12:07 | POSTANESTH ---
Post Anesthetic Evaluation Cardiovascular Status: Similar to Pre-Op Cond Respiratory Status: Normal, Stable Level of Consciousness/Mental Status: Can Participate in Eval Pain Control: Adequate, Prn Tx Ordered Nausea/Vomiting Control: Adequate, Prn Tx Ordered Complications Possibly Related to Anesthesia: None Noted
[2018-03-01] MEDS ORDERED: HYDROCODONE/APAP 5/325 TAB PO PRN (12:09)
[2018-03-01] MEDS ORDERED: ONDANSETRON DISINTEGRATING 4 MG TAB PO PRN (12:09)
--- NOTE | 2018-03-01 12:09 | POSTOPPROG ---
Post Op Note Date of Operation: 03/01/18 Surgeon: Nanda Dove Field Appraiser: Lidia Estrada PA-C Anesthesiologist: Dr. Valenzuela Anesthesia: GET(General Endotracheal) Pre-op Diagnosis: Chronic pain Post-op Diagnosis: chronic pain Procedure: Implant of spinal cord stimulator generator to the right hip Inf/Abcess present in the surg proc area at time of surgery?: No Depth: Deep Incisional (Fascial) EBL: Minimal Plan Plan: 78 yo male s/p implant of SCS generator to the right hip - neuro checks - pain control - advance diet as tolerated - dc home Exam Awake. Alert Following commands Strength full
--- NOTE | 2018-03-01 12:12 | GOP ---
DATE OF OPERATION: 03/01/2018 SURGEON: Nanda Dove DO NEUROSURGEON: Nanda Dove DO LANDSCAPE MANAGEMENT TECHNICIAN: FAREED Jiang. PREOPERATIVE DIAGNOSIS: 1. Chronic pain syndrome. 2. Failed back syndrome. 3. Successful spinal cord stimulator trial. POSTOPERATIVE DIAGNOSIS: 1. Chronic pain syndrome. 2. Failed back syndrome. 3. Successful spinal cord stimulator trial. PROCEDURE PERFORMED: 1. Placement of spinal cord stimulator generator to right hip. Connection to indwelling spinal cord stimulator paddle lead. 2. Impedances. FINDINGS: SPECIMENS: None. ESTIMATED BLOOD LOSS: 5 mL. INDICATIONS: This is a 78-year-old male with failed back syndrome, chronic pain syndrome, who had a successful spinal cord stimulator trial with at least 60% to 70% improvement in his pain, improvement in his activities of daily living, who elected to move forward with generator placement. DESCRIPTION OF PROCEDURE: He was identified, consented. Sites were marked. Brought to the operatin g room, anesthetized under general endotracheal tube anesthesia. Preoperatively had marked his belt line. Incision sites were marked. He was prepped and draped in the usual sterile fashion after lakshmi ving the sutures in the indwelling incision. The hip was anesthetized with 0.25% Marcaine with epine phrine. Incision was made with a 10 blade and a subcutaneous pocket was created at the appropriate d epth with Metzenbaum scissors and blunt dissection. We then reopened the thoracic incision bringing the lead and extension up and out, cutting the extension of the distal and pulling it out underneath the drape, cutting the lead extension sutures with a 15 blade, retracting the boot, protecting the co ntact, removing it with the torque wrench. Discarded the boot and the extensions, tunneled from the pocket to the thoracic spine, bringing the leads down and placing them into the generator in appropri ate configuration, leaving a strain relief loop in the subcutaneous pocket. Checked impedances. All impedances were good. Sutured the generator with 2-0 silk stitch to the fascia. 2 positions. Copi ously irrigated each incision with over a liter of gentamicin-infused saline at the thoracic spine. Closed the subcutaneous layer with 2-0 Vicryl pop-offs, the skin with a 3-0 running nylon. In the hi p closed the subcutaneous layer with 2-0 Vicryl pop-offs, cutaneous layer with 3-0 Vicryl pop-offs. The skin was closed with 4-0 running Monocryl and Steri-Strips. Both wounds were dressed with Xerofo rm gauze and a Tegaderm. Patient tolerated the procedure well. No complications. FLUIDS: 500 mL crystalloid. URINE OUTPUT: None. DRAINS: None. COMPLICATIONS: None. /[id number]/MODL
[2018-03-01] MEDS ORDERED: ONDANSETRON DISINTEGRATING 4 MG TAB ONE (12:24)
[2018-03-01 13:06] VITALS: BP 133/77
== END 2018-03-01 13:26 | disposition home or self-care (01) ==
LOC: FSGY 08:31
PROVIDERS: ATTEND Neurological Surgery
PROC: BR19YZZ Fluoroscopy of Lumbar Spine using Other Contrast (ICD-10-PCS; principal; 2018-03-01 10:30)
PROC: 0JH70MZ Insertion of Stimulator Generator into Back Subcutaneous Tissue and Fascia, Open Approach (ICD-10-PCS; principal; 2018-03-01 10:30)
DX: G89.4 Chronic pain syndrome (principal); M54.16 Radiculopathy, lumbar region; M79.604 Pain in right leg; M48.02 Spinal stenosis, cervical region; M47.12 Other spondylosis with myelopathy, cervical region; E78.5 Hyperlipidemia, unspecified; Z85.46 Personal history of malignant neoplasm of prostate; Z95.5 Presence of coronary angioplasty implant and graft
CPT/HCPCS: C1787; C1820; J0690; J1580; J2250; J2405; J2704; J2765; J3010

== ENCOUNTER → 2018-05-10 | Outpatient (CLI) | payer OTHER | LOC: FIMAGING 06:27 | PROVIDERS: ATTEND Physical Medicine & Rehabilitation | DX: M46.1 Sacroiliitis, not elsewhere classified (principal); M51.37 Other intervertebral disc degeneration, lumbosacral region ==

== ENCOUNTER → 2018-09-08 | Outpatient (CLI) | payer OTHER | LOC: FIMAGING 07:35 ==